=== PATIENT | male | born 1940 | race Caucasian/White ===

== ENCOUNTER 2021-10-13 11:14 | Emergency (ER) | payer OTHER ==
[2021-10-13 11:57] VITALS: BP 140/94; PULSE 111; TEMP 98.3; BMI 27.4
[2021-10-13] MEDS ORDERED: SOTROVIMAB 500 MG in SODIUM CHLORIDE 100 ML IVPB ONE (12:30)
== END 2021-10-13 17:48 | disposition home or self-care (01) ==
LOC: JCOVINFU 11:14 → JER 11:14 → EDBD 11:14 → JCOVINFU 17:48
DX: U07.1 COVID-19 (principal)
CPT/HCPCS: 99284-25; Q0247